=== PATIENT | male | born 1970 | race Hispanic/Latino ===

== ENCOUNTER 2020-05-23 05:03 | Inpatient (IN) | payer SELFPAY ==
[2020-05-23] VITALS (8 sets, daily range): BP systolic 88–166; BP diastolic 62–97
[~2020-05-23] VITALS: Ht 170.2 cm; Wt 85.5 kg
[2020-05-23] MEDS ORDERED: MORPHINE SULFATE 2 MG/ML SYR 1ML IV STA (05:09)
[2020-05-23] MEDS ORDERED: ONDANSETRON HCL INJ 2MG/ML 2ML 2 MG/ML VIAL IV STA (05:09)
[2020-05-23] MEDS ORDERED: PIPER-TAZ 3.375 GM 50 ML IV ONE (05:15)
[2020-05-23 05:33] LABS: BASOPHILS # (AUTO) 0.1 (0.0-0.1); BASOPHILS % 0.4 % (0.0-1.0); EOSINOPHILS # (AUTO) 0.1 (0.0-0.4); EOSINOPHILS % 1.3 % (0.0-6.0); HEMATOCRIT 37.9 % (38.2-49.6); HEMOGLOBIN 12.2 g/dL (14.0-18.0); LYMPHOCYTES # (AUTO) 1.3 (1.0-3.2); LYMPHOCYTES % 11.8 % (18.0-39.1); MEAN CORPUSCULAR HEMOGLOBIN 27.8 pg (28-32); MEAN CORPUSCULAR HGB CONC 32.2 g/dL (31-35); MEAN CORPUSCULAR VOLUME 86.3 fL (81-99); MONOCYTES # (AUTO) 0.9 (0.2-0.8); MONOCYTES % 8.3 % (4.4-11.3); NEUTROPHILS # (AUTO) 8.7 (2.1-6.9); NEUTROPHILS % 77.4 % (38.7-80.0); PLATELET COUNT 318 x10e3/uL (140-360); RED BLOOD COUNT 4.39 x10e6/uL (4.3-5.7); RED CELL DISTRIBUTION WIDTH 12.2 % (11.7-14.4)
[2020-05-23] MEDS: AMPICILLIN SOD/SULBACTAM 3GM 100 ML IV SCH ×3 (05:36→18:31)
[2020-05-23] MEDS ORDERED: ACETAMINOPHEN 325 MG TAB PO PRN (05:45)
[2020-05-23] MEDS ORDERED: DEXTROSE 50% SYRINGE 50 ML IV PRN (05:45)
[2020-05-23 05:51] LABS: ALBUMIN 4.2 g/dL (3.5-5.0); ALBUMIN/GLOBULIN RATIO 0.9 (0.8-2.0); ANION GAP 17.6 mmol/L (8-16); CALCIUM 9.8 mg/dL (8.4-10.2); CREATININE, SERUM 1.46 mg/dL (0.72-1.25); POTASSIUM 4.6 mmol/L (3.5-5.1)
[2020-05-23] MEDS ORDERED: INSULIN REGULAR, HUMAN 100 UNIT/1 ML 3ML VIAL SQ ONE (06:00)
[2020-05-23] MEDS ORDERED: SODIUM CHLORIDE 0.9% 1000ML 1,000 ML IV ONE (06:00)
[2020-05-23 06:01] LABS: INR 0.84; PROTHROMBIN TIME 11.9 seconds (11.9-14.5)
[2020-05-23 06:02] LABS: PARTIAL THROMBOPLASTIN TIME 37.1 seconds (23.8-35.5)
[2020-05-23] MEDS ORDERED: INSULIN REGULAR, HUMAN 100 UNIT/1 ML 3ML VIAL ONE (06:07)
[2020-05-23] MEDS: ONDANSETRON HCL INJ 2MG/ML 2ML 2 MG/ML VIAL IV PRN ×3 (07:56→20:13)
[2020-05-23] MEDS: MORPHINE SULFATE INJ 4 MG/ML INJ 1ML IV PRN ×3 (07:56→20:13)
[2020-05-23] MEDS: SODIUM CHLORIDE 0.9% 1000ML 1,000 ML IV SCH ×3 (08:21→21:45)
[2020-05-23] MEDS: INSULIN REGULAR, HUMAN 100 UNIT/1 ML 3ML VIAL SQ SCH ×4 (08:30→20:11)
[2020-05-23] MEDS ORDERED: INSULIN LISPRO 100 UNIT/1 ML 3ML VIAL SQ ONE (08:45)
[2020-05-23] MEDS: INSULIN LISPRO 100 UNIT/1 ML 3ML VIAL SQ SCH ×2 (11:30→15:29)
[2020-05-23] MEDS ORDERED: SODIUM CHLORIDE 0.9% 250ML 250 ML IV ONE (12:15)
[2020-05-23] MEDS ORDERED: ONDANSETRON HCL INJ 2MG/ML 2ML 2 MG/ML VIAL ONE (12:32)
[2020-05-23] MEDS ORDERED: PROPOFOL IV EMULSION 10 MG/ML 20 ML VIAL ONE (12:32)
[2020-05-23] MEDS ORDERED: LIDOCAINE HCL 2% LOCAL INJ 5 ML SDV VIAL INJ ONE (12:32)
[2020-05-23] MEDS ORDERED: EPHEDRINE SULFATE INJ 50 MG/ML VIAL ONE (12:32)
[2020-05-23] MEDS ORDERED: DESFLURANE 240 ML BTL INH ONE (12:32)
[2020-05-23] MEDS ORDERED: DEXTROSE 5% 250ML 250 ML IV ONE (13:46)
[2020-05-23] MEDS ORDERED: HYDROMORPHONE 1MG/1ML INJ ONE (14:23)
[2020-05-23] MEDS ORDERED: GLUCAGON FOR INJ 1 MG VIAL SC PRN (14:30)
[2020-05-23] MEDS ORDERED: RABIES IMMUNE GLOBULIN/PF 150 UNIT/ML VIAL IM ONE (18:00)
[2020-05-23] MEDS ORDERED: RABIES VAC,PF CHICK-EMB CELL 2.5/KIT IM ONE (20:00)
[2020-05-23] MEDS: INSULIN GLARGINE 100 UNITS/ML VIAL SQ SCH (20:12)
[2020-05-24] VITALS (8 sets, daily range): BP systolic 121–165; BP diastolic 77–96
[2020-05-24] MEDS: AMPICILLIN SOD/SULBACTAM 3GM 100 ML IV SCH ×5 (00:36→23:26)
[2020-05-24] MEDS: MORPHINE SULFATE INJ 4 MG/ML INJ 1ML IV PRN ×4 (00:37→17:20)
[2020-05-24] MEDS: ONDANSETRON HCL INJ 2MG/ML 2ML 2 MG/ML VIAL IV PRN ×3 (00:37→17:19)
[2020-05-24 05:55] LABS: BASOPHILS % 0.3 % (0.0-1.0); EOSINOPHILS # (AUTO) 0.1 (0.0-0.4); EOSINOPHILS % 0.7 % (0.0-6.0); HEMATOCRIT 30.9 % (38.2-49.6); HEMOGLOBIN 9.9 g/dL (14.0-18.0); LYMPHOCYTES # (AUTO) 1.2 (1.0-3.2); LYMPHOCYTES % 9.1 % (18.0-39.1); MEAN CORPUSCULAR HEMOGLOBIN 28.8 pg (28-32); MEAN CORPUSCULAR VOLUME 89.8 fL (81-99); MONOCYTES # (AUTO) 1.4 (0.2-0.8); NEUTROPHILS % 78.3 % (38.7-80.0); PLATELET COUNT 244 x10e3/uL (140-360); RED BLOOD COUNT 3.44 x10e6/uL (4.3-5.7); RED CELL DISTRIBUTION WIDTH 12.2 % (11.7-14.4)
[2020-05-24] MEDS: SODIUM CHLORIDE 0.9% 1000ML 1,000 ML IV SCH (06:14)
[2020-05-24 06:15] LABS: ALANINE AMINOTRANSFERASE 8 IU/L (0-55); ALBUMIN 3.5 g/dL (3.5-5.0); ALKALINE PHOSPHATASE 109 IU/L (40-150); ANION GAP 12.4 mmol/L (8-16); BLOOD UREA NITROGEN 13 mg/dL (7-26); BUN/CREATININE RATIO 14 (6-25); CALCIUM 8.4 mg/dL (8.4-10.2); CARBON DIOXIDE 24 mmol/L (22-29); CHLORIDE 100 mmol/L (98-107); CREATININE, SERUM 0.92 mg/dL (0.72-1.25); EST GLOMERULAR FILTRATION RATE > 60 ML/MIN (60-); GLUCOSE 259 mg/dL (74-118); POTASSIUM 4.4 mmol/L (3.5-5.1); SODIUM 132 mmol/L (136-145)
[2020-05-24] MEDS: INSULIN REGULAR, HUMAN 100 UNIT/1 ML 3ML VIAL SQ SCH ×4 (07:30→21:00)
[2020-05-24] MEDS: INSULIN LISPRO 100 UNIT/1 ML 3ML VIAL SQ SCH ×3 (07:30→16:30)
[2020-05-24] MEDS: HYDROGEN PEROXIDE 120 ML BTL TOP SCH ×2 (09:55→21:10)
[2020-05-24] MEDS: INSULIN GLARGINE 100 UNITS/ML VIAL SQ SCH (21:12)
[2020-05-24] MEDS: HYDROCODONE/APAP 5MG-325MG TAB PO PRN (21:30)
[2020-05-24] MEDS: ASPIRIN 81 MG CHEW TAB PO SCH (23:12)
[2020-05-24] MEDS: ATORVASTATIN 20 MG TAB PO SCH (23:12)
[2020-05-24 23:22] LABS: CREATINE KINASE 53 IU/L (30-200)
[2020-05-25] VITALS (10 sets, daily range): BP systolic 124–166; BP diastolic 78–95
[2020-05-25] MEDS: ONDANSETRON HCL INJ 2MG/ML 2ML 2 MG/ML VIAL IV PRN ×4 (03:30→22:57)
[2020-05-25] MEDS: MORPHINE SULFATE INJ 4 MG/ML INJ 1ML IV PRN ×5 (03:30→22:57)
[2020-05-25] MEDS: AMPICILLIN SOD/SULBACTAM 3GM 100 ML IV SCH ×4 (06:17→22:56)
[2020-05-25 06:53] LABS: BASOPHILS # (AUTO) 0.1 (0.0-0.1); BASOPHILS % 0.5 % (0.0-1.0); EOSINOPHILS # (AUTO) 0.3 (0.0-0.4); EOSINOPHILS % 2.6 % (0.0-6.0); HEMATOCRIT 29.5 % (38.2-49.6); HEMOGLOBIN 9.2 g/dL (14.0-18.0); LYMPHOCYTES # (AUTO) 1.6 (1.0-3.2); LYMPHOCYTES % 13.3 % (18.0-39.1); MEAN CORPUSCULAR HEMOGLOBIN 27.5 pg (28-32); MEAN CORPUSCULAR HGB CONC 31.2 g/dL (31-35); MEAN CORPUSCULAR VOLUME 88.1 fL (81-99); MONOCYTES # (AUTO) 1.3 (0.2-0.8); MONOCYTES % 10.7 % (4.4-11.3); NEUTROPHILS # (AUTO) 8.6 (2.1-6.9); PLATELET COUNT 257 x10e3/uL (140-360); RED BLOOD COUNT 3.35 x10e6/uL (4.3-5.7); RED CELL DISTRIBUTION WIDTH 12.1 % (11.7-14.4)
[2020-05-25 07:12] LABS: CREATINE KINASE MB 1.1 ng/mL (0-5.0)
[2020-05-25] MEDS: INSULIN LISPRO 100 UNIT/1 ML 3ML VIAL SQ SCH ×3 (08:00→17:42)
[2020-05-25] MEDS: ASPIRIN 81 MG CHEW TAB PO SCH (08:04)
[2020-05-25] MEDS: INSULIN REGULAR, HUMAN 100 UNIT/1 ML 3ML VIAL SQ SCH ×4 (09:05→21:00)
[2020-05-25] MEDS: HYDROGEN PEROXIDE 120 ML BTL TOP SCH (09:30)
[2020-05-25] MEDS: HYDROCODONE/APAP 5MG-325MG TAB PO PRN ×2 (12:43→20:00)
[2020-05-25 17:12] LABS: CREATINE KINASE 53 IU/L (30-200)
[2020-05-25 17:38] LABS: CHOL/HDL RATIO 6.5 (3.9-4.7)
[2020-05-25] MEDS: ATORVASTATIN 20 MG TAB PO SCH (20:32)
[2020-05-25] MEDS: INSULIN GLARGINE 100 UNITS/ML VIAL SQ SCH (21:00)
[2020-05-26] VITALS: BP 124/72
[2020-05-26] MEDS: HYDROGEN PEROXIDE 120 ML BTL TOP SCH ×2 (03:30→09:57)
[2020-05-26] MEDS: HYDROCODONE/APAP 5MG-325MG TAB PO PRN ×2 (03:35→09:57)
[2020-05-26 04:00] VITALS: BP 125/82
[2020-05-26] MEDS: AMPICILLIN SOD/SULBACTAM 3GM 100 ML IV SCH (06:18)
[2020-05-26 08:00] VITALS: BP 140/87
[2020-05-26 08:20] VITALS: BP 140/87
[2020-05-26] MEDS: INSULIN LISPRO 100 UNIT/1 ML 3ML VIAL SQ SCH ×2 (08:30→12:30)
[2020-05-26] MEDS: INSULIN REGULAR, HUMAN 100 UNIT/1 ML 3ML VIAL SQ SCH ×2 (08:30→12:30)
[2020-05-26] MEDS: ASPIRIN 81 MG CHEW TAB PO SCH (09:57)
[2020-05-26 12:11] VITALS: BP 132/84
== END 2020-05-26 15:15 | disposition home or self-care (01) | DRG 854 ==
LOC: ER 05:15 → ERHOLD 05:41 → MED/SURG3 06:24
PROVIDERS: ADMIT Internal Medicine; ATTEND Internal Medicine
PROC: 0KND0ZZ Release Left Hand Muscle, Open Approach (ICD-10-PCS; principal; 2020-05-23 13:00)
DX: A41.9 Sepsis, unspecified organism (principal); L03.114 Cellulitis of left upper limb; E87.1 Hypo-osmolality and hyponatremia; T79.A12A Traumatic compartment syndrome of left upper extremity, initial encounter; S61.452A Open bite of left hand, initial encounter; M65.4 Radial styloid tenosynovitis [de Quervain]; E11.22 Type 2 diabetes mellitus with diabetic chronic kidney disease; N18.3 Chronic kidney disease, stage 3 (moderate); D64.9 Anemia, unspecified; E11.649 Type 2 diabetes mellitus with hypoglycemia without coma; W54.0XXA Bitten by dog, initial encounter; D63.1 Anemia in chronic kidney disease; M94.0 Chondrocostal junction syndrome [Tietze]; I95.9 Hypotension, unspecified; Z11.59 Encounter for screening for other viral diseases
CPT/HCPCS: 36415; 71045; 71101; 80053; 80061; 82550; 82553; 82948; 83036; 83605; 84484; 85025; 85610; 85730; 87040; 87071; 87075; 87186; 87205; 93005; 96372; 99284; J0295; J1170; J1610; J1815; J1817; J2001; J2270; J2405; J2543; J7030; J7070; U0002

== ENCOUNTER 2020-06-05 11:45 | Inpatient (IN) | payer SELFPAY ==
[~2020-06-05] VITALS: Ht 170.2 cm; Wt 86.3 kg
[2020-06-05] MEDS ORDERED: PIPERACILLIN/TAZO 4.5 GM 100 ML IV STA (11:52)
[2020-06-05] MEDS ORDERED: ACETAMINOPHEN 325 MG TAB PO STA (11:52)
[2020-06-05] MEDS: ACETAMINOPHEN 325 MG TAB PO PRN ×2 (11:55→23:55)
[2020-06-05 12:26] LABS: BASOPHILS # (AUTO) 0.1 (0.0-0.1); BASOPHILS % 0.7 % (0.0-1.0); EOSINOPHILS # (AUTO) 0.1 (0.0-0.4); EOSINOPHILS % 0.4 % (0.0-6.0); HEMATOCRIT 35.9 % (38.2-49.6); HEMOGLOBIN 11.5 g/dL (14.0-18.0); LYMPHOCYTES # (AUTO) 1.3 (1.0-3.2); LYMPHOCYTES % 10.6 % (18.0-39.1); MEAN CORPUSCULAR HEMOGLOBIN 27.4 pg (28-32); MEAN CORPUSCULAR VOLUME 85.7 fL (81-99); MONOCYTES # (AUTO) 1.1 (0.2-0.8); MONOCYTES % 8.5 % (4.4-11.3); NEUTROPHILS # (AUTO) 9.8 (2.1-6.9); NEUTROPHILS % 79.2 % (38.7-80.0); PLATELET COUNT 391 x10e3/uL (140-360); RED BLOOD COUNT 4.19 x10e6/uL (4.3-5.7); RED CELL DISTRIBUTION WIDTH 12.3 % (11.7-14.4)
[2020-06-05] MEDS ORDERED: SODIUM CHLORIDE 0.9% 1000ML 1,000 ML IV SCH ×2 (12:45→13:00)
[2020-06-05 12:46] LABS: ALBUMIN 4.1 g/dL (3.5-5.0); ALBUMIN/GLOBULIN RATIO 1.1 (0.8-2.0); ANION GAP 15.9 mmol/L (8-16); CALCIUM 8.8 mg/dL (8.4-10.2); CREATININE, SERUM 1.52 mg/dL (0.72-1.25); POTASSIUM 4.9 mmol/L (3.5-5.1)
[2020-06-05 12:58] LABS: INR 0.95; PROTHROMBIN TIME 13.2 seconds (11.9-14.5)
[2020-06-05] MEDS: VANCOMYCIN 750MG/NS 150ML IVPB 150 ML IV SCH (13:28)
[2020-06-05 13:41] LABS: CLARITY,URINE SL CLOUDY (CLEAR); COLOR,URINE YELLOW (YELLOW); LEUKOCYTE ESTERASE ,URINE NEGATIVE (NEGATIVE); NITRITE,URINE NEGATIVE (NEGATIVE); PROTEIN,URINE DIPSTICK 2+ (NEGATIVE)
[2020-06-05 13:42] LABS: BILIRUBIN,URINE NEGATIVE (NEGATIVE); KETONES,URINE NEGATIVE (NEGATIVE); URINE UROBILINOGEN 0.2 mg/dL (0.2 - 1)
[2020-06-05 13:48] LABS: BACTERIA,URINE RARE /HPF; EPITHELIAL CELLS,URINE MODERATE /LPF; RBC,URINE 0-5 /HPF (0-5); WBC,URINE (MAN) 0-5 /HPF (0-5)
[2020-06-05] MEDS ORDERED: GADOBENATE DIMEGLUMINE 1 ML IV ONE (15:55)
[2020-06-05 17:13] VITALS: BP 152/90
[2020-06-05] MEDS ORDERED: ATORVASTATIN CA20 MG PO (17:15)
[2020-06-05] MEDS ORDERED: ULTRACET TABLE1 EACH PO (17:15)
[2020-06-05] MEDS ORDERED: AMOXICILLIN250 MG PO (17:15)
[2020-06-05 20:00] VITALS: BP 136/97
[2020-06-05] MEDS: SODIUM CHLORIDE 0.9% 1000ML 1,000 ML IV SCH (20:15)
[2020-06-05] MEDS ORDERED: DEXTROSE 50% SYRINGE 50 ML IV PRN (20:15)
[2020-06-05] MEDS ORDERED: INSULIN GLARGINE 100 UNITS/ML VIAL SQ SCH (21:00)
[2020-06-06] VITALS (7 sets, daily range): BP systolic 123–178; BP diastolic 79–99
[2020-06-06] MEDS: VANCOMYCIN 750MG/NS 150ML IVPB 150 ML IV SCH ×2 (00:30→13:00)
[2020-06-06 06:41] LABS: BASOPHILS # (AUTO) 0.1 (0.0-0.1); BASOPHILS % 0.8 % (0.0-1.0); EOSINOPHILS # (AUTO) 0.1 (0.0-0.4); EOSINOPHILS % 2.2 % (0.0-6.0); HEMATOCRIT 33.8 % (38.2-49.6); HEMOGLOBIN 11.2 g/dL (14.0-18.0); LYMPHOCYTES # (AUTO) 1.6 (1.0-3.2); LYMPHOCYTES % 25.4 % (18.0-39.1); MEAN CORPUSCULAR HEMOGLOBIN 28.8 pg (28-32); MEAN CORPUSCULAR HGB CONC 33.1 g/dL (31-35); MEAN CORPUSCULAR VOLUME 86.9 fL (81-99); MONOCYTES # (AUTO) 0.7 (0.2-0.8); MONOCYTES % 10.7 % (4.4-11.3); NEUTROPHILS # (AUTO) 3.8 (2.1-6.9); NEUTROPHILS % 60.3 % (38.7-80.0); PLATELET COUNT 307 x10e3/uL (140-360); RED BLOOD COUNT 3.89 x10e6/uL (4.3-5.7); RED CELL DISTRIBUTION WIDTH 12.4 % (11.7-14.4)
[2020-06-06 07:04] LABS: ALANINE AMINOTRANSFERASE 16 IU/L (0-55); ALBUMIN 3.8 g/dL (3.5-5.0); ALBUMIN/GLOBULIN RATIO 1.1 (0.8-2.0); ALKALINE PHOSPHATASE 115 IU/L (40-150); ANION GAP 10.3 mmol/L (8-16); BLOOD UREA NITROGEN 17 mg/dL (7-26); BUN/CREATININE RATIO 19 (6-25); CALCIUM 9.1 mg/dL (8.4-10.2); CARBON DIOXIDE 28 mmol/L (22-29); CHLORIDE 100 mmol/L (98-107); CREATININE, SERUM 0.89 mg/dL (0.72-1.25); EST GLOMERULAR FILTRATION RATE > 60 ML/MIN (60-); GLUCOSE 242 mg/dL (74-118); POTASSIUM 4.3 mmol/L (3.5-5.1); SODIUM 134 mmol/L (136-145)
[2020-06-06] MEDS: SODIUM CHLORIDE 0.9% 1000ML 1,000 ML IV SCH ×3 (07:43→21:16)
[2020-06-06] MEDS ORDERED: EPHEDRINE SULFATE INJ 50 MG/ML VIAL ONE (13:18)
[2020-06-06] MEDS ORDERED: PROPOFOL IV EMULSION 10 MG/ML 20 ML VIAL ONE (13:18)
[2020-06-06] MEDS ORDERED: LIDOCAINE HCL 2% LOCAL INJ 5 ML SDV VIAL INJ ONE (13:18)
[2020-06-06] MEDS ORDERED: ONDANSETRON HCL INJ 2MG/ML 2ML 2 MG/ML VIAL ONE (13:18)
[2020-06-06] MEDS ORDERED: SEVOFLURANE INHAL SOLN 250 ML PEN BTL ONE (13:18)
[2020-06-06] MEDS ORDERED: BUPIVACAINE HCL 0.5% INJ 30 ML VIAL INJ ONE (13:30)
[2020-06-06] MEDS ORDERED: MIDAZOLAM HCL 2 MG/2 ML VIAL ONE (14:12)
[2020-06-06] MEDS ORDERED: FENTANYL CITRATE/PF 100MCG/2 ML INJ ONE ×2 (14:12→14:59)
[2020-06-06] MEDS: ACETAMINOPHEN 325 MG TAB PO PRN (16:32)
[2020-06-06] MEDS: PIPER-TAZ 3.375 GM 50 ML IV SCH ×2 (17:22→23:24)
[2020-06-06] MEDS ORDERED: DEXTROSE 50% SYRINGE 50 ML IV PRN (20:45)
[2020-06-06] MEDS: INSULIN GLARGINE 100 UNITS/ML VIAL SQ SCH (21:34)
[2020-06-06] MEDS: INSULIN REGULAR, HUMAN 100 UNIT/1 ML 3ML VIAL SQ SCH (21:35)
[2020-06-06] MEDS: MORPHINE SULFATE INJ 4 MG/ML INJ 1ML IV PRN (21:37)
[2020-06-07] VITALS (8 sets, daily range): BP systolic 114–150; BP diastolic 72–92
[2020-06-07] MEDS: VANCOMYCIN 750MG/NS 150ML IVPB 150 ML IV SCH ×2 (00:38→13:48)
[2020-06-07] MEDS: MORPHINE SULFATE INJ 4 MG/ML INJ 1ML IV PRN ×2 (03:51→13:58)
[2020-06-07] MEDS: PIPER-TAZ 3.375 GM 50 ML IV SCH ×2 (06:08→12:00)
[2020-06-07] MEDS: INSULIN REGULAR, HUMAN 100 UNIT/1 ML 3ML VIAL SQ SCH ×4 (08:30→20:53)
[2020-06-07] MEDS: HYDROGEN PEROXIDE 120 ML BTL TOP SCH ×2 (10:00→20:08)
[2020-06-07] MEDS: SODIUM CHLORIDE 0.9% 1000ML 1,000 ML IV SCH (12:00)
[2020-06-07] MEDS: MORPHINE SULFATE 2 MG/ML SYR 1ML IV PRN (20:18)
[2020-06-07] MEDS: INSULIN GLARGINE 100 UNITS/ML VIAL SQ SCH (20:53)
[2020-06-08] VITALS (8 sets, daily range): BP systolic 108–153; BP diastolic 66–95
[2020-06-08] MEDS: VANCOMYCIN 750MG/NS 150ML IVPB 150 ML IV SCH ×2 (00:06→13:58)
[2020-06-08] MEDS: SODIUM CHLORIDE 0.9% 1000ML 1,000 ML IV SCH ×4 (00:06→23:58)
[2020-06-08] MEDS: MORPHINE SULFATE 2 MG/ML SYR 1ML IV PRN ×4 (03:51→21:38)
[2020-06-08 06:28] LABS: BASOPHILS # (AUTO) 0.1 (0.0-0.1); BASOPHILS % 0.6 % (0.0-1.0); EOSINOPHILS # (AUTO) 0.1 (0.0-0.4); EOSINOPHILS % 1.6 % (0.0-6.0); HEMATOCRIT 32.3 % (38.2-49.6); HEMOGLOBIN 10.2 g/dL (14.0-18.0); LYMPHOCYTES # (AUTO) 1.6 (1.0-3.2); LYMPHOCYTES % 17.8 % (18.0-39.1); MEAN CORPUSCULAR HEMOGLOBIN 27.5 pg (28-32); MEAN CORPUSCULAR HGB CONC 31.6 g/dL (31-35); MEAN CORPUSCULAR VOLUME 87.1 fL (81-99); MONOCYTES % 11.3 % (4.4-11.3); NEUTROPHILS # (AUTO) 6.1 (2.1-6.9); NEUTROPHILS % 68.4 % (38.7-80.0); PLATELET COUNT 329 x10e3/uL (140-360); RED BLOOD COUNT 3.71 x10e6/uL (4.3-5.7); RED CELL DISTRIBUTION WIDTH 12.3 % (11.7-14.4)
[2020-06-08 06:52] LABS: ALANINE AMINOTRANSFERASE 12 IU/L (0-55); ALBUMIN 2.7 g/dL (3.5-5.0); ALBUMIN/GLOBULIN RATIO 0.7 (0.8-2.0); ALKALINE PHOSPHATASE 98 IU/L (40-150); BLOOD UREA NITROGEN 11 mg/dL (7-26); BUN/CREATININE RATIO 15 (6-25); CALCIUM 8.7 mg/dL (8.4-10.2); CARBON DIOXIDE 28 mmol/L (22-29); CHLORIDE 102 mmol/L (98-107); CREATININE, SERUM 0.75 mg/dL (0.72-1.25); EST GLOMERULAR FILTRATION RATE > 60 ML/MIN (60-); GLUCOSE 138 mg/dL (74-118); SODIUM 138 mmol/L (136-145)
[2020-06-08] MEDS: INSULIN REGULAR, HUMAN 100 UNIT/1 ML 3ML VIAL SQ SCH ×4 (08:18→21:53)
[2020-06-08] MEDS: HYDROGEN PEROXIDE 120 ML BTL TOP SCH ×2 (08:19→21:20)
[2020-06-08] MEDS: ACETAMINOPHEN 325 MG TAB PO PRN (10:02)
[2020-06-08] MEDS: CEFAZOLIN SOD 1 GM/NS 50ML 50 ML IV SCH ×2 (16:35→23:57)
[2020-06-08] MEDS ORDERED: CEFAZOLIN SOD 1 GM VIAL IV SCH (21:00)
[2020-06-08] MEDS: INSULIN GLARGINE 100 UNITS/ML VIAL SQ SCH (21:53)
[2020-06-09] VITALS (8 sets, daily range): BP systolic 126–151; BP diastolic 83–93
[2020-06-09] MEDS: MORPHINE SULFATE 2 MG/ML SYR 1ML IV PRN ×5 (02:15→21:51)
[2020-06-09] MEDS: SODIUM CHLORIDE 0.9% 1000ML 1,000 ML IV SCH ×3 (04:15→21:51)
[2020-06-09] MEDS: INSULIN REGULAR, HUMAN 100 UNIT/1 ML 3ML VIAL SQ SCH ×4 (07:30→20:48)
[2020-06-09] MEDS: CEFAZOLIN SOD 1 GM/NS 50ML 50 ML IV SCH ×2 (08:14→17:15)
[2020-06-09 08:52] LABS: BASOPHILS # (AUTO) 0.1 (0.0-0.1); BASOPHILS % 0.7 % (0.0-1.0); EOSINOPHILS # (AUTO) 0.2 (0.0-0.4); HEMATOCRIT 34.1 % (38.2-49.6); HEMOGLOBIN 10.7 g/dL (14.0-18.0); LYMPHOCYTES # (AUTO) 1.7 (1.0-3.2); LYMPHOCYTES % 24.4 % (18.0-39.1); MEAN CORPUSCULAR HEMOGLOBIN 27.6 pg (28-32); MEAN CORPUSCULAR HGB CONC 31.4 g/dL (31-35); MEAN CORPUSCULAR VOLUME 87.9 fL (81-99); MONOCYTES # (AUTO) 0.8 (0.2-0.8); MONOCYTES % 10.9 % (4.4-11.3); NEUTROPHILS # (AUTO) 4.3 (2.1-6.9); NEUTROPHILS % 60.7 % (38.7-80.0); PLATELET COUNT 340 x10e3/uL (140-360); RED BLOOD COUNT 3.88 x10e6/uL (4.3-5.7); RED CELL DISTRIBUTION WIDTH 12.1 % (11.7-14.4)
[2020-06-09] MEDS: HYDROGEN PEROXIDE 120 ML BTL TOP SCH ×2 (09:08→20:06)
[2020-06-09 09:24] LABS: ALANINE AMINOTRANSFERASE 13 IU/L (0-55); ALBUMIN/GLOBULIN RATIO 0.7 (0.8-2.0); ALKALINE PHOSPHATASE 98 IU/L (40-150); ANION GAP 11.2 mmol/L (8-16); BLOOD UREA NITROGEN 9 mg/dL (7-26); BUN/CREATININE RATIO 11 (6-25); CALCIUM 9.3 mg/dL (8.4-10.2); CARBON DIOXIDE 29 mmol/L (22-29); CHLORIDE 100 mmol/L (98-107); CREATININE, SERUM 0.79 mg/dL (0.72-1.25); EST GLOMERULAR FILTRATION RATE > 60 ML/MIN (60-); GLUCOSE 132 mg/dL (74-118); POTASSIUM 4.2 mmol/L (3.5-5.1); SODIUM 136 mmol/L (136-145)
[2020-06-09] MEDS: INSULIN GLARGINE 100 UNITS/ML VIAL SQ SCH (20:48)
[2020-06-10] VITALS: BP 147/88
[2020-06-10] MEDS: SODIUM CHLORIDE 0.9% 1000ML 1,000 ML IV SCH ×2 (00:15→06:29)
[2020-06-10] MEDS: CEFAZOLIN SOD 1 GM/NS 50ML 50 ML IV SCH ×2 (00:49→09:57)
[2020-06-10] MEDS: MORPHINE SULFATE 2 MG/ML SYR 1ML IV PRN ×3 (03:53→14:00)
[2020-06-10 04:00] VITALS: BP 125/79
[2020-06-10 06:24] LABS: BASOPHILS % 0.6 % (0.0-1.0); EOSINOPHILS # (AUTO) 0.2 (0.0-0.4); EOSINOPHILS % 3.2 % (0.0-6.0); HEMATOCRIT 31.6 % (38.2-49.6); LYMPHOCYTES # (AUTO) 1.6 (1.0-3.2); LYMPHOCYTES % 22.7 % (18.0-39.1); MEAN CORPUSCULAR HEMOGLOBIN 27.5 pg (28-32); MEAN CORPUSCULAR HGB CONC 31.6 g/dL (31-35); MEAN CORPUSCULAR VOLUME 86.8 fL (81-99); MONOCYTES # (AUTO) 0.8 (0.2-0.8); NEUTROPHILS # (AUTO) 4.2 (2.1-6.9); NEUTROPHILS % 61.6 % (38.7-80.0); PLATELET COUNT 347 x10e3/uL (140-360); RED BLOOD COUNT 3.64 x10e6/uL (4.3-5.7); RED CELL DISTRIBUTION WIDTH 12.2 % (11.7-14.4)
[2020-06-10 06:59] LABS: ALANINE AMINOTRANSFERASE 11 IU/L (0-55); ALBUMIN 2.7 g/dL (3.5-5.0); ALBUMIN/GLOBULIN RATIO 0.7 (0.8-2.0); ALKALINE PHOSPHATASE 86 IU/L (40-150); BLOOD UREA NITROGEN 10 mg/dL (7-26); BUN/CREATININE RATIO 13 (6-25); CALCIUM 8.7 mg/dL (8.4-10.2); CARBON DIOXIDE 28 mmol/L (22-29); CHLORIDE 103 mmol/L (98-107); EST GLOMERULAR FILTRATION RATE > 60 ML/MIN (60-); GLUCOSE 117 mg/dL (74-118); SODIUM 136 mmol/L (136-145)
[2020-06-10] MEDS: INSULIN REGULAR, HUMAN 100 UNIT/1 ML 3ML VIAL SQ SCH ×2 (07:30→11:37)
[2020-06-10 08:00] VITALS: BP 132/86
[2020-06-10 08:44] VITALS: BP 132/86
[2020-06-10] MEDS: HYDROGEN PEROXIDE 120 ML BTL TOP SCH (10:05)
[2020-06-10 12:00] VITALS: BP 114/74
[2020-06-10 16:00] VITALS: BP 130/86
[2020-06-10] MEDS ORDERED: KEFLEX500 MG PO (17:18)
[2020-06-10] MEDS ORDERED: METFORMIN HCL500 MG PO (17:19)
[2020-06-10] MEDS ORDERED: LANTUS 3ML100 UNITS/ SC (17:19)
[2020-06-10] MEDS ORDERED: TYLENOL # 31 EA PO (17:20)
== END 2020-06-10 17:41 | disposition home or self-care (01) | DRG 580 ==
LOC: ER 12:15 → ERHOLD 12:53 → MED/SURG3 17:00
PROVIDERS: ADMIT Family Medicine; ATTEND Family Medicine
PROC: 0J9K0ZZ Drainage of Left Hand Subcutaneous Tissue and Fascia, Open Approach (ICD-10-PCS; 2020-06-06)
PROC: 0LB80ZZ Excision of Left Hand Tendon, Open Approach (ICD-10-PCS; principal; 2020-06-06 13:36)
DX: L02.512 Cutaneous abscess of left hand (principal); L03.114 Cellulitis of left upper limb; W54.0XXA Bitten by dog, initial encounter; B95.62 Methicillin resistant Staphylococcus aureus infection as the cause of diseases classified elsewhere; I12.9 Hypertensive chronic kidney disease with stage 1 through stage 4 chronic kidney disease, or unspecified chronic kidney disease; E11.22 Type 2 diabetes mellitus with diabetic chronic kidney disease; N18.30 Chronic kidney disease, stage 3 unspecified; B95.61 Methicillin susceptible Staphylococcus aureus infection as the cause of diseases classified elsewhere; Z79.4 Long term (current) use of insulin; Z11.59 Encounter for screening for other viral diseases
CPT/HCPCS: 36415; 80053; 80202; 81001; 82948; 83605; 85025; 85610; 87040; 87071; 87075; 87086; 87186; 87205; 93005; 99284; J0690; J1815; J1817; J2001; J2250; J2270; J2405; J2543; J3010; J7030; U0002

== ENCOUNTER 2021-01-20 07:50 | Emergency (ER) | payer SELFPAY ==
[~2021-01-20] VITALS: Ht 170.2 cm; Wt 86.2 kg
[~2021-01-20 07:50] MED LIST: AMOXICILLIN250 MG PO; ATORVASTATIN CA20 MG PO; KEFLEX500 MG PO; LANTUS 3ML100 UNITS/ SC; METFORMIN HCL500 MG PO; TYLENOL # 31 EA PO; ULTRACET TABLE1 EACH PO
[2021-01-20] MEDS ORDERED: CLINDAMYCIN PHOS 600 MG/ 4 ML VIAL IM ONE (08:15)
== END 2021-01-20 08:55 | disposition home or self-care (01) ==
LOC: ER 08:41
DX: L02.31 Cutaneous abscess of buttock (principal); I10 Essential (primary) hypertension; E11.9 Type 2 diabetes mellitus without complications; E78.5 Hyperlipidemia, unspecified; Z86.39 Personal history of other endocrine, nutritional and metabolic disease
CPT/HCPCS: 99283

== ENCOUNTER 2025-05-09 15:15 | Observation (INO) | payer BC ==
[~2025-05-09] VITALS: Ht 170.2 cm; Wt 86.3 kg
[~2025-05-09 15:15] MED LIST changes: +ACETAMINOPHEN325 M1 PO; +ATORVASTATIN CA40 MG PO; +AUGMENTIN 500-1 EACH PO; +CLEOCIN HCL300 MG PO; +CLINDAMYCIN HC300 MG PO; +COREG6.25 MG PO; +FENOFIBRATE145 MG PO; +GLIPIZIDE5 MG PO; +HUMALOG100 UNIT/1 SQ; +INSULIN GL100 UNIT/1 SQ; +Insulin Glargine SQ; +Insulin Lispro SQ; +LANTUS 3ML100 UNITS/ SQ; +LASIX40 MG PO; +LIPITOR20 MG PO; +NORVASC10 MG PO; +NYAMYC15 GM TOP; +ONDANSETRON ODT4 MG PO; +ULTRAM 50MG50 MG PO
[2025-05-09 15:24] VITALS: TEMP 98.2
[2025-05-09 16:01] LABS: BASOPHILS % 0.4 % (0.0-1.0); EOSINOPHILS % 3.2 % (0.0-6.0); LYMPHOCYTES % 15.7 % (18.0-39.1); MONOCYTES % 10.6 % (4.4-11.3); NEUTROPHILS % 69.9 % (38.7-80.0); RED CELL DISTRIBUTION WIDTH 14.8 % (11.7-14.4)
[2025-05-09 16:53] LABS: EST GLOMERULAR FILTRATION RATE 8.0 ML/MIN (>=60)
[2025-05-09 18:44] VITALS: PULSE 80; RESP 18; O2SAT 98
[2025-05-09] MEDS: SOD POLYSTYRENE SULFONATE SUSP 15 GM/60 ML BTL PO ONE (19:10)
[2025-05-09] MEDS: CALCIUM GLUC 1 G/50 ML NACL 50 ML IV SCH (19:11)
[2025-05-09] MEDS: SODIUM BICARBONATE 8.4% INJ 50 ML SYR IV STA (19:11)
[2025-05-09] MEDS: INSULIN REGULAR, HUMAN 100 UNIT/1 ML IV ONE (19:12)
[2025-05-09] MEDS: NIFEDIPINE CR 30 MG TAB PO SCH (22:28)
[2025-05-09] MEDS: HYDROCODONE/APAP 5MG-325MG TAB PO PRN (22:28)
[2025-05-09 22:32] VITALS: PULSE 75; RESP 17
[2025-05-09 23:00] VITALS: BP 197/93; PULSE 76; RESP 16; TEMP 97.5; O2SAT 100
[2025-05-09] MEDS ORDERED: DIPHENHYDRAMINE HCL 25 MG CAP PO PRN (23:15)
[2025-05-09] MEDS ORDERED: ACETAMINOPHEN 325 MG TAB PO PRN (23:15)
[2025-05-09] MEDS ORDERED: SIMETHICONE 80 MG CHEW PO PRN (23:15)
[2025-05-09] MEDS ORDERED: ALBUTEROL/IPRATROPIUM 3 ML NEB NEB PRN (23:15)
[2025-05-09] MEDS ORDERED: BENZONATATE 100 MG CAP PO PRN (23:15)
[2025-05-09] MEDS ORDERED: DEXTROSE 50% SYRINGE 50 ML IV PRN ×2 (23:15)
[2025-05-09] MEDS ORDERED: ONDANSETRON HCL INJ 2MG/ML 2ML 2 MG/ML VIAL IV PRN (23:15)
[2025-05-09] MEDS ORDERED: HYDRALAZINE HCL 20 MG/ML VIAL IV PRN (23:15)
[2025-05-09] MEDS ORDERED: MELATONIN 5 MG TABLET PO PRN (23:15)
[2025-05-09] MEDS ORDERED: DOCUSATE SODIUM 100 MG CAP PO PRN (23:15)
[2025-05-10] VITALS (7 sets, daily range): BP systolic 140–155; BP diastolic 70–80; PULSE 67–86; RESP 17–19; TEMP 97.9–98.6; O2SAT 94–100
[2025-05-10 06:11] LABS: BASOPHILS % 0.5 % (0.0-1.0); EOSINOPHILS % 3.3 % (0.0-6.0); LYMPHOCYTES % 15.1 % (18.0-39.1); MONOCYTES % 10.0 % (4.4-11.3); NEUTROPHILS % 70.8 % (38.7-80.0); RED CELL DISTRIBUTION WIDTH 14.8 % (11.7-14.4)
[2025-05-10 06:55] LABS: PHOSPHORUS 4.4 MG/DL (2.3-4.7)
[2025-05-10 06:56] LABS: EST GLOMERULAR FILTRATION RATE 10.0 ML/MIN (>=60)
[2025-05-10] MEDS: INSULIN LISPRO 100 UNIT/1 ML 3ML VIAL SQ SCH (07:30)
[2025-05-10] MEDS: PANTOPRAZOLE SOD 40 MG TABEC PO SCH (08:13)
[2025-05-10] MEDS: SODIUM CHLORIDE 0.9% 1000ML 2,000 ML ONE (10:28)
[2025-05-11 06:28] LABS: HEPATITIS B CORE AB TOTAL Negative; HEPATITIS B SURFACE AB QUANT 168.0; HEPATITIS B SURFACE AG (P) Negative
[2025-05-11] MEDS ORDERED: ASPIRIN 81 MG ENTERIC COATED PO SCH (09:00)
== END 2025-05-10 17:50 | disposition home or self-care (01) ==
LOC: ER 15:20 → ERHOLD 17:28 → MED/SURG2 22:55
PROVIDERS: ADMIT Internal Medicine; ATTEND Internal Medicine
DX: E87.70 Fluid overload, unspecified (principal); I12.0 Hypertensive chronic kidney disease with stage 5 chronic kidney disease or end stage renal disease; N18.6 End stage renal disease; R07.9 Chest pain, unspecified; E11.22 Type 2 diabetes mellitus with diabetic chronic kidney disease; Z99.2 Dependence on renal dialysis; Z91.158 Patient's noncompliance with renal dialysis for other reason; Z59.00 Homelessness unspecified; E11.319 Type 2 diabetes mellitus with unspecified diabetic retinopathy without macular edema; E78.5 Hyperlipidemia, unspecified; Z79.4 Long term (current) use of insulin; Z79.84 Long term (current) use of oral hypoglycemic drugs
CPT/HCPCS: 36415 ×2; 71045; 80048; 80053; 82550 ×2; 82948 ×2; 83036; 83690; 83735; 84100; 84484 ×2; 85025 ×2; 86704; 86706; 87340; 93005; 94799 ×2; 99284; G0378 ×2; J2470; J7030

== ENCOUNTER 2025-05-17 20:03 | Emergency (ER) | payer BC ==
[~2025-05-17] VITALS: Ht 170.2 cm; Wt 86.2 kg
[2025-05-17 20:15] VITALS: TEMP 98
[2025-05-17 21:18] LABS: BASOPHILS % 0.4 % (0.0-1.0); EOSINOPHILS % 2.8 % (0.0-6.0); LYMPHOCYTES % 12.5 % (18.0-39.1); MONOCYTES % 9.0 % (4.4-11.3); NEUTROPHILS % 74.9 % (38.7-80.0); RED CELL DISTRIBUTION WIDTH 15.0 % (11.7-14.4)
[2025-05-17 21:53] LABS: EST GLOMERULAR FILTRATION RATE 9.0 ML/MIN (>=60)
[2025-05-18 00:09] VITALS: PULSE 75; RESP 17
[2025-05-18 01:04] VITALS: BP 185/91; PULSE 73; RESP 17; TEMP 98.1; O2SAT 97
== END 2025-05-18 01:28 | disposition home or self-care (01) ==
LOC: ER 21:38
DX: R06.02 Shortness of breath (principal); R07.89 Other chest pain; I12.0 Hypertensive chronic kidney disease with stage 5 chronic kidney disease or end stage renal disease; E11.22 Type 2 diabetes mellitus with diabetic chronic kidney disease; E11.65 Type 2 diabetes mellitus with hyperglycemia; N18.6 End stage renal disease; Z99.2 Dependence on renal dialysis; E78.5 Hyperlipidemia, unspecified; R94.31 Abnormal electrocardiogram [ECG] [EKG]
CPT/HCPCS: 36415; 71045; 80053; 85025; 93005; 99284